=== PATIENT | male | born 1965 | race Two or more races ===

== ENCOUNTER 2020-04-01 05:44 | Day surgery (SDC) | payer OTHER ==
--- NOTE | 2020-03-31 18:28 | Pre-Procedure Note/Attestation ---
Pre-Procedure Note/Attestation Complete Prior to Procedure Planned Procedure: bilateral Procedure Narrative: 1. Open reduction internal fixation nasal fracture 2. Septoplasty 3. Submucous resection right inferior turbinate 4. Submucous resection left inferior turbinate. Indications for Procedure Pre-Operative Diagnosis: 1. Nasal fracture 2. Nasal septal deviation 3. Hypertrophied right inferior turbinate 4. Hypertrophied left inferior turbinate Attestation I attest that I discussed the nature of the procedure; its benefits; risks and complications; and alternatives (and the risks and benefits of such alternatives ), prior to the procedure, with the patient (or the patient's legal account retention representative). I attest that, if there was a reasonable possibility of needing a blood transfusion, the patient (or the patient's legal account retention representative) was given the [facility] standardized written summary, pursuant to the Luigi Zoraida Blood Safety Act ([place] Health and Safety Code # 1645, as amended). I attest that I re-evaluated the patient just prior to the surgery and that there has been no change in the patient's H&P by Dr. Chen who is on staff at [place]. He has also done the labs which and has notified the OR. Ralph Agustin MD Mar 31, 2020 18:28
--- NOTE | 2020-03-31 18:29 | Brief Operative Note ---
Immediate Post Operative Note Operative Note Chief Complaint: Nasal fracture and poor nasal breathing. Pre-op Diagnosis: 1. Nasal fracture 2. Nasal septal deviation 3. Hypertrophied right inferior turbinate 4. Hypertrophied left inferior turbinate Procedure: 1. Open reduction internal fixation nasal fracture 2. Septoplasty 3. Submucous resection right inferior turbinate 4. Submucous resection left inferior turbinate. Post-op Diagnosis: same as pre-op Surgeon: Dr. Ralph Agustin Ore Storage Drier: none Additional Surgeons: none Anesthesiologist: Aleisha Anesthesia: general Specimen: none Complications: none Condition: stable Fluids: D5LR Estimated Blood Loss: volume - 25 cc Drains: none Packing: Sino Nasal gel Implant(s) used?: No Ralph Agustin MD Mar 31, 2020 18:29
--- NOTE | 2020-03-31 18:33 | Discharge Instructions ---
Discharge Instructions Discharge Instructions Follow up with: Dr. Agustin in his office 04/07/2020 1230 Diet: regular Resume Normal Activity?: No Activity: light activity Pneumonia Vaccine: pt refused vaccine Influenza Vaccine (Jun to Nov): pt refused vaccine Follow Up Orders pt has printed instructions in Bel[place]ian which were reviewed with pt at his pre op visit last week. Return to Work/School on: Apr 15, 2020 Special Instructions ice to face x 48 hours For Surgical Patients May shower: No - sponge bath only For Congestive Heart Failure Reminder Report to your physician any weight gain of 5 pounds or more in one week. Ralph Agustin MD Mar 31, 2020 18:33
[2020-04-01] VITALS (11 sets, daily range): BP systolic 122–149; BP diastolic 76–94
[~2020-04-01] VITALS: Ht 180.3 cm; Wt 88.9 kg
[~2020-04-01 05:44] MED LIST: AMOXICILLIN500 MG ORAL; METFORMIN HCL850 M1 ORAL; NORCO 5-325 TA1 EAC1 ORAL
[2020-04-01] MEDS ORDERED: Midazolam 2mg/2ml Inj ONE (07:18)
[2020-04-01] MEDS ORDERED: fentaNYL 100 mcg/2 mL IV ONE (07:19)
[2020-04-01] MEDS ORDERED: ceFAZolin sod 1 GM in D5W 55 ML IV ONE (07:20)
[2020-04-01] MEDS ORDERED: Bupivacaine w/Epi 0.5% 30ml Vial INJ ONE (07:22)
[2020-04-01] MEDS ORDERED: Cocaine HCl 4% 4ml vial TOPIC ONE (07:22)
[2020-04-01] MEDS ORDERED: Lidocaine 1% 10mg/ml/Epi 0.005mg/ml 30ml vial INJ ONE (07:22)
[2020-04-01] MEDS ORDERED: Succinylcholine 20mg/ml 10ml vial ONE (07:35)
[2020-04-01] MEDS ORDERED: Hydromorphone 0.5mg/0.5ml inj IVP PRN (07:45)
[2020-04-01] MEDS ORDERED: fentaNYL 100 mcg/2 mL IV PRN (07:45)
--- NOTE | 2020-04-01 07:49 | Anethesia Preoperative Eval ---
Anesthesia Pre-op PMH/ROS General Date of Evaluation: Apr 01, 2020 Time of Evaluation: 07:00 Anesthesiologist: matheus ASA Score: ASA 2 Mallampati Score Class I : Soft palate, uvula, fauces, pillars visible Class II: Soft palate, uvula, fauces visible Class III: Soft palate, base of uvula visible Class IV: Only hard plate visible Mallampati Classification: Class III Surgeon: Vamsi Diagnosis: Nasal Fx Surgical Procedure: ORIF nasal fx Anesthesia History: none Social History: smoking Family History: no anesthesia problems Allergies: Coded Allergies: No Known Allergies (Unverified , 03/31/20) Medications: see eMAR Patient NPO?: Yes NPO Date: Apr 01, 2020 NPO Time: 00:01 Past Medical History Cardiovascular: Denies: HTN, CAD, NM, valve dz, arrhythmia, other Pulmonary: Denies: asthma, COPD, [place], other Gastrointestinal/Genitourinary: Denies: GERD, CRI, ESRD, other Neurologic/Psychiatric: Denies: dementia, CVA, depression/anxiety, TIA, other Endocrine: Reports: DM; Denies: hypothyroidism, steroids, other HEENT: Denies: cataract (L), cataract (R), glaucoma, [place] (L), [place]FOR[place]K (R), other Hematology/Immune: Denies: anemia, DVT, bleeding disorder, other Musculoskeletal/Integumentary: Denies: OA, RA, DJD, DDD, edema, other Anesthesia Pre-op Phys. Exam Physician Exam Last Vital Signs Date Time Temp Pulse Resp B/P (MAP) Pulse Ox O2 Delivery O2 Flow Rate FiO2 04/01/20 06:20 Room Air 04/01/20 06:14 97.1 79 18 122/79 97 Constitutional: NAD Neurologic: CN 2-12 intact Cardiovascular: RRR Respiratory: CTA Gastrointestinal: S/NT/ND Airway Exam Mallampati Classification 3 Mallampati Score: Class III MO: full Neck: thick TMD: 2fb ROM: full Dentures: no upper, no lower Anesthesia Pre-op A/P Labs Accucheck fs-200 Studies Pre-op Studies: EKG - SR Risk Assessment & Plan Assessment: denies changes in health the last two weeks; quit smoking in 2006 Plan: General LMA vs ETT; Aleisha Goss CRNA Apr 01, 2020 07:49
[2020-04-01] MEDS ORDERED: LR 1000ml ONE (08:00)
[2020-04-01] MEDS ORDERED: Sterile Water Irrig 1000ml IRRIG ONE ×2 (08:00→08:53)
[2020-04-01] MEDS ORDERED: NS Irrig 1000ml ONE (08:00)
[2020-04-01] MEDS ORDERED: Lidocaine 1% MPF 10mg/ml 5ml ONE (08:51)
--- NOTE | 2020-04-01 09:14 | Immediate Post-Op Evaluation ---
Immediate Post-Op Evalulation Immediate Post-Op Evalulation Procedure: ORIF nasal fx Date of Evaluation: Apr 01, 2020 Time of Evaluation: 09:13 IV Fluids: 600 Blood Products: 0 Estimated Blood Loss: 25 Blood Pressure Systolic: 122 Blood Pressure Diastolic: 78 Pulse Rate: 85 Respiratory Rate: 14 O2 Sat by Pulse Oximetry: 100 Temperature (Fahrenheit): 97.5 Nausea: No Vomiting: No Complications none Patient Status: awake, reacts, patent Hydration Status: adequate Drug: ancef Given Within 1 Hr of Incision: Yes Time Given: 08:15 Aleisha Greer CRNA Apr 01, 2020 09:13
--- NOTE | 2020-04-01 11:05 | 48 Hour Post Anesthesia Eval ---
Post Anesthesia Evaluation Procedure: ORIF nasal fx Date of Evaluation: Apr 01, 2020 Time of Evaluation: 11:05 Blood Pressure Systolic: 149 0: 94 Pulse Rate: 95 Respiratory Rate: 14 O2 Sat by Pulse Oximetry: 98 Airway: patent Nausea: No Vomiting: No Hydration Status: adequate Cardiopulmonary Status: stable Mental Status/LOC: patient returned to baseline Post-Anesthesia Complications: none Follow-up care needed: N/A Aleisha Greer CRNA Apr 01, 2020 11:05
--- NOTE | 2020-04-01 11:15 | Operative Note - Dictated ---
DATE OF OPERATION: 04/01/2020 SURGEON: Ralph Agustin MD. SUPPLY CHAIN ENGINEER: None. ANESTHESIOLOGIST: SALAS Moraes. ANESTHESIA: LMA general as well as 15 mL 50:50 mixture of 1% lidocaine with 1:100,000 epinephrine and Marcaine 0.5% with 1:200,000 epinephrine. Additionally 4 mL of 4% cocaine placed on four topical pledgets accounted for at the end of the case. INDICATION FOR SURGERY: The patient fractured his nose at work as well as deviated his septum, has hypertrophied right and left inferior turbinates. PREOPERATIVE DIAGNOSES: The patient fractured his nose at work as well as deviated his septum, has hypertrophied right and left inferior turbinates. POSTOPERATIVE DIAGNOSES: The patient fractured his nose at work as well as deviated his septum, has hypertrophied right and left inferior turbinates. FINDINGS: The patient fractured his nose at work as well as deviated his septum, has hypertrophied right and left inferior turbinates. Bump on the nose, nose goes off to his right. PROCEDURES: 1. ORIF nasal septal fracture. 2. Septoplasty. 3. Submucous resection of right inferior turbinate. 4. Submucous resection of left inferior turbinate. TECHNIQUE: The patient was prepped and draped in the usual manner. Time-out was performed. All agreed with procedure to be done. I injected the aforementioned lidocaine, Marcaine, and epinephrine mixture fifth cranial nerve division 1 bilaterally and division 2 as well as in the septum and the nose. The topical cocaine was placed in the nostrils on two nasal pledgets on either side. I initially made an incision in the anterior-inferior aspect of each inferior turbinate with a 15 blade. I developed a tunnel and passed a radiofrequency wand after coating it with saline gel 10 seconds setting of 6 two times in either inferior turbinate, and then outfracturing with a Boies elevator. I made a [place] incision on the left side of the septum where there was a vomer and spur. This was elevated with a [place] elevator. I then removed the lower 3 mm with a gouge osteotome. I then sewed the flap back together with a 4-0 plain suture. Between the cartilage incisions were made and stick incision at the base of either nares. I then elevated over the anterior aspect of the nose with an Aufricht. I then used a gouge osteotome to reduce the nasal fracture. I then used a low lateral straight guarded osteotome to make a low lateral osteotomy. I then used an Servando forceps to make sure the fracture was complete. Nose was placed back in normal position. I then used a large angled scissors to remove some other scar tissue over the anterior mid third of the nose and a rasp. Sinonasal gel was placed in either nostril, one syringe between the two. Tape was placed on the nose and a stent. Mustache dressing was placed. EBL: 25 mL. COMPLICATIONS: None. DRAINS: None. The patient is awake and alert and stable in the operating room and the recovery room. Ralph Agustin M.D. DR: PALLAVI JOB#: [id number] CC:
[2020-04-01] MEDS ORDERED: Metoclopramide 10mg/2ml Inj IVP PRN (15:46)
[2020-04-01] MEDS ORDERED: HYDROmorphone 1mg/ml Carpuject SUBQ PRN (15:46)
[2020-04-01] MEDS ORDERED: HYDROcodone/Acetamin 5/325 tab ORAL PRN (15:46)
== END 2020-04-01 11:10 | disposition home or self-care (01) ==
LOC: SUR 05:44
DX: S02.2XXA Fracture of nasal bones, initial encounter for closed fracture (principal); J34.2 Deviated nasal septum; J34.3 Hypertrophy of nasal turbinates; E11.9 Type 2 diabetes mellitus without complications; F17.200 Nicotine dependence, unspecified, uncomplicated; Z87.891 Personal history of nicotine dependence; X58.XXXA Exposure to other specified factors, initial encounter; Y92.9 Unspecified place or not applicable
CPT/HCPCS: 21336; 30140; 30520; 94003; C9046; J0690; J1100; J2250; J2405; J2704; J3010; J7120; 94150